=== PATIENT | female | born 1925 | race Caucasian/White ===

== ENCOUNTER → 2016-10-11 | Outpatient (CLI) | payer OTHER ==
[~2016-10-11] MED LIST: ATEN-175 PO; ATEN50TA8 PO; CEFT1INJ57 IV; CHOL100027 PO; CMD/25 PO; CMD25 PO; FELO2.5T PO; FLNIN NAE; FLUT0.15; FLUT0.15 INH; FURO-85 PO; FURO20TA PO; ISOS30TA35 PO; LEVO25TA30 PO; LEVO50TA6 PO; LOSA1TAB PO; LOSA50TA6 PO; MCRK/10 PO; MECL1TAB40 PO; MECL1TAB42 PO; NITR0.4S UT; NTRGSL4 SL; POTA10TA30 PO; PRAM0.129 PO; PRAM1TAB52 PO; TRAM-10 PO; ULT/50 PO; UMEC1AER INH; VNTHFA/IN INH; WARF2.5T8 PO
--- NOTE | 2016-10-11 12:04 | DIAGNOSTIC IMAGING REPORT ---
CHEST 2 VIEWS ROUTINE CLINICAL HISTORY: Pleural effusion. COMPARISON STUDY: Chest radiograph and chest CT January 24, 2016. FINDINGS: Dilatation of the thoracic aorta is unchanged since CT of July 29, 2016. There is no pneumothorax. A small left pleural effusion is noted. There is no evidence of pulmonary edema. Moderate cardiomegaly is unchanged. IMPRESSION: 1. Small left pleural effusion. 2. 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 3. Stable moderate cardiomegaly without evidence of pulmonary edema. Electronically signed by: Sunil Keller M.D. 10/11/2016 12:02 PM Dictated Date/Time: 10/11/2016 12:00 PM
== END | disposition home or self-care (01) ==
LOC: C.LAB1850 11:29
PROVIDERS: ATTEND Surgery
DX: J90 Pleural effusion, not elsewhere classified (principal); I71.2 Thoracic aortic aneurysm, without rupture; I51.7 Cardiomegaly

== ENCOUNTER → 2016-12-23 | Outpatient (CLI) | payer OTHER ==
[~2016-12-23] MED LIST changes: -CEFT1INJ57 IV; -CMD25 PO; -FLUT0.15; -FLUT0.15 INH; -NTRGSL4 SL; -TRAM-10 PO; -VNTHFA/IN INH
--- NOTE | 2016-12-23 15:08 | MAMMOGRAPHY REPORT ---
BILATERAL DIGITAL DIAGNOSTIC MAMMOGRAM TOMOSYNTHESIS WITH CAD: 12/23/2016 CLINICAL HISTORY: 12 month follow-up of left breast calcifications. The patient reports no current complaints. TECHNIQUE: Breast tomosynthesis in addition to standard 2D mammography was performed. Current study was also evaluated with a Computer Aided Detection (CAD) system. Bilateral CC and MLO 2-D and arina synthesis images were obtained. COMPARISON: Comparison is made to exams dated: 12/16/2015 mammogram, 12/09/2014 mammogram, 06/16/2015 m ammogram, 12/13/2014 mammogram, 12/05/2013 mammogram, and 12/04/2012 mammogram - [facility] nter. BREAST COMPOSITION: The tissue of both breasts is heterogeneously dense, which may obscure small ma sses. FINDINGS: Again noted is a small 3 mm cluster of coarse heterogeneous calcifications in the left 6: 00 posterior breast, best seen on the cc view. Compared to prior exams, the calcifications are stab le in number compared to the December 2015 and June 2015 exams, and are more coarsened and therefo re more benign-appearing compared to the December 2014 exam. Given the long-term stability, the calcif ications are considered benign. The remainder of both breasts are stable compared to prior exams, without suspicious masses, calcifi cations, or areas of architectural distortion noted. Other scattered bilateral benign-appearing jose rafael cifications are not significantly changed. IMPRESSION: ACR BI-RADS CATEGORY 2: BENIGN Small cluster of calcifications in the left 6:00 breast is stable dating back to at least the 2014 exam, and considered benign given long-term stability. There is no mammographic evidence o f malignancy in either breast. A 1 year screening mammogram is recommended. The patient has been ve rbally notified of the results. Approximately 10% of breast cancers are not detected with mammography. A negative mammographic repor t should not delay biopsy if a clinically suggestive mass is present. Alesha Gilliam M.D. /:12/23/2016 14:04:27 Bottling Attendant: Aga VILLALPANDO(Tarsha)(M), [facility] letter sent: Normal 1/2 BI-RADS Code: ACR BI-RADS Category 2: Benign
== END | disposition home or self-care (01) ==
LOC: C.MAMM 13:26
PROVIDERS: ATTEND Family Medicine
DX: R92.1 Mammographic calcification found on diagnostic imaging of breast (principal)